=== PATIENT | male | born 1945 | race Caucasian/White ===

== ENCOUNTER → 2019-04-02 09:43 | Outpatient (CLI) | payer MEDICARE, OTHER, SELFPAY ==
--- NOTE | 2019-04-02 | DI.US.S_ITS ---
PROCEDURE: US ABD AORTA ANEURYSM SCREEN INDICATIONS: PERSONAL HISTORY OF NICOTINE DEPENDENCE TECHNIQUE: Real time scanning was performed of the aorta and iliac arteries, with image documentation. COMPARISON: [facility], CR, XR ABDOMEN 1 VIEW, 12/25/2018, 11:45. [facility] Ultrasound, US, US RENAL COMPLETE, 11/13/2017, 10:19. FINDINGS: Aorta: Proximal aortic diameter measures 2.8 cm. Mid-aorta measures 2.4 cm. Distal aortic diameter is 2.5 cm. Iliac arteries: Right common iliac artery measures 1.5 cm. Left common iliac artery measures 1.1 cm. IMPRESSION: Ectasia of the aorta. 5 year followup ultrasound recommended. Dictated by: Dave Amos [facility] Interpreted: Alberta Mccall MD on 04/02/2019 at 11:05 Approved by: Alberta Mccall M.D. on 04/02/2019 at 14:08
== END ==
PROVIDERS: Visit Provider Student in an Organized Health Care Education/Training Program
DX: Z13.6 Encounter for screening for cardiovascular disorders (principal); I77.819 Aortic ectasia, unspecified site; Z87.891 Personal history of nicotine dependence
CPT/HCPCS: 76706

== ENCOUNTER 2020-02-05 11:21 | Emergency (ER) | payer MEDICARE, OTHER, SELFPAY ==
[2020-02-05 11:26] VITALS: BP 183/86; PULSE 75; RESP 18; TEMP 36.1; O2SAT 99; BMI 29.1
[2020-02-05 11:53] LABS: Add Manual Diff / Slide Review NO; Basophils Absolute Auto 0 /uL (0-100); Basophils Percent Auto 0.3 % (0-2); Eosinophils Absolute Auto 0 /uL (0-450); Eosinophils Percent Auto 0.3 % (2-4); Lymphocytes Absolute Auto 1500 /uL (1100-4500); Lymphocytes Percent Auto 11.3 % (25-40); Mean Corpuscular HGB Conc 32.5 % (30-36); Monocytes Absolute Auto 900 /uL (0-900); Monocytes Percent Auto 6.7 % (3-14); Neutrophils Absolute Auto 10700 /uL (1500-7000); Neutrophils Percent Auto 81.4 % (50-75); Platelet Count 230 X10^3/uL (150-400); Red Blood Cell Count 5.54 X10^6/uL (4.5-5.9); Red Cell Distribution Width 14.9 % (11.6-14.8); White Blood Cell Count 13.1 X10^3/uL (4.5-11.0)
[2020-02-05 11:58] LABS: Prothrombin Time 11.8 SECONDS (10.1-12.7)
[2020-02-05 12:01] LABS: Alanine Aminotransferase 19 IU/L (<50); Albumin 4.3 g/dL (3.5-5.0); Albumin Globulin Ratio 1.2 (1.0-2.8); Alkaline Phosphatase 100 U/L (38-126); Aspartate Aminotransferase 24 IU/L (17-59); BUN Creatinine Ratio 13.8 (6-22); Bilirubin Total 0.7 mg/dL (0.2-1.3); Blood Urea Nitrogen 17 mg/dL (9-20); Calcium 9.8 mg/dL (8.4-10.2); Carbon Dioxide 28 mmol/L (22-32); Chloride 106 mmol/L (98-107); Estimated Glomerular Filt Rate 57.7 mL/min (>60); Globulin 3.6 g/dL (1.7-4.1); Glucose 162 mg/dL (80-110); HEMOLYSIS < 15 (0-50); Lipase 57 U/L (23-300); PTT Partial Thromboplastin Tim 29 SECONDS (26.4-36.2); Potassium 4.3 mmol/L (3.4-5.1); Sodium 143 mmol/L (137-145); Total Protein 7.9 g/dL (6.3-8.2)
[2020-02-05 12:47] VITALS: PULSE 75; O2SAT 97
--- NOTE | 2020-02-05 12:47 | ED.ABDPAIN ---
HPI - Abdominal Pain General Chief Complaint: Abdominal Pain Stated Complaint: Lower Left Abdominal pain Time Seen by Provider: 02/05/20 12:34 History of Present Illness HPI narrative: 74-year-old gentleman with a history of hypertension for which he rarely takes his prescribed medication presents with acute onset abdominal pain. Mid epigastrium possibly left lower quadrant that is been present since 6:00 a.m. this morning and is getting increasingly worse. He is having difficulty finding a comfortable position to be in.. He had his appendix taken out approximately 15 years ago. He does not describe significant fevers. He had a normal bowel movement last night and a small bowel movement that did not influence his pain at all this morning. He describes no chest pain, vomiting, nausea, diarrhea, dyspnea, dysuria, flank pain. Notes some chills associated with waves of pain this morning. Related Data Previous Rx's Medication Instructions Recorded oxycodone-acetaminophen 1 tab PO Q6H PRN #14 tab 02/05/20 tamsulosin 0.4 mg PO DAILY #30 cap 02/05/20 Allergies Allergy/AdvReac Type Severity Reaction Status Date / Time No Known Drug Allergies Allergy Verified 02/05/20 11:26 Review of Systems Review of Systems Narrative: Remainder of review of systems including constitutional, ENT, cardiovascular, respiratory, GI, , musculoskeletal, skin, neurologic and psychiatric systems reviewed and are unremarkable except as noted in HPI. Patient History Medical History (Updated 02/05/20 @ 15:56 by Joy Reyes MD) Hypertension (Acute) Social History Smoking Status: Former smoker Smoking Status: Former smoker alcohol intake frequency: 0-2 drinks per day Alcohol type: hard liquor Substance Use Type: does not use Exam Narrative Exam Narrative: General: Healthy appearing, in no acute distress. Able to give a complete and coherent history. Well-nourished well-developed HEENT: Moist mucous membranes, normal sclera with reactive pupils, Neck: No JVD, supple Respiratory: Lungs are clear to auscultation, no wheezing no rales no rhonchi. Full and symmetrical air movement Cardiac: Regular rate and rhythm no murmurs no bruits Abdomen: Soft mildly tender periumbilical into the left lower quadrant with hypo active bowel tones, no rebound or guarding. No flank pain Skin: Warm and dry, no rashes Neurologic: Grossly neurologically intact with no obvious asymmetries or abnormalities Extremities: No trauma, well perfused Psych: Cooperative, appropriate insight and affect Initial Vital Signs Initial Vital Signs: Vital Signs Temperature 97.0 F L 02/05/20 11:26 Pulse Rate 75 02/05/20 11:26 Respiratory Rate 18 02/05/20 11:26 Blood Pressure 183/86 H 02/05/20 11:26 Pulse Oximetry 99 02/05/20 11:26 Course Orders Ordered: ED Orders 02/05/20 11:31 EKG-12 Lead Stat 02/05/20 11:40 Complete Blood Count AUTO DIFF Stat Comprehensive Metabolic Panel Stat Lipase Stat Partial Thromboplastin Time Stat Prothrombin Time INR Stat 02/05/20 14:09 CT abdomen pelvis w con Stat 02/05/20 14:20 Urine Microscopic Stat Discontinued Medications Hydromorphone HCl (Dilaudid) 0.5 mg IV NOW ONE Stop: 02/05/20 12:58 Last Admin: 02/05/20 13:04 Dose: 0.5 mg Documented by: LUDWIN Sodium Chloride (Normal Saline 0.9%) 1,000 mls @ 1,000 mls/hr IV BOLUS ONE Stop: 02/05/20 13:56 Last Infusion: 02/05/20 13:58 Dose: 0 mls/hr Documented by: Admin: 02/05/20 13:04 Dose: 1,000 mls/hr Documented by: LUDWIN Oxycodone/Acetaminophen (Percocet 5/325) 1 tab PO NOW ONE Stop: 02/05/20 15:52 Tamsulosin HCl (Flomax) 0.4 mg PO NOW ONE Stop: 02/05/20 15:52 Vital Signs Vital signs: Vital Signs - 8 hr 02/05/20 11:26 02/05/20 12:47 02/05/20 12:48 Temperature 97.0 F L Pulse Rate 75 75 73 Respiratory Rate 18 Blood Pressure 183/86 H 189/92 H Pulse Oximetry 99 97 98 02/05/20 13:00 02/05/20 13:30 Temperature Pulse Rate 70 78 Respiratory Rate Blood Pressure 170/79 H 156/75 H Pulse Oximetry 97 95 MDM - Abdominal Pain Medical Records Attestation: I reviewed the patient's medical records. Lab Data Attestation: I reviewed the patient's lab results. Result diagrams: 02/05/20 11:40 09/16/20 11:40 Labs: Lab Results 02/05/20 02/05/20 02/05/20 Range/Units 11:40 11:40 11:40 WBC 13.1 H (4.5-11.0) X10^3/uL RBC 5.54 (4.5-5.9) X10^6/uL Hgb 15.0 (13.5-17.5) g/dL Hct 46.0 (41-53) % MCV 83.0 (80-100) fL MCH 27.0 (26-34) PG MCHC 32.5 (30-36) % RDW 14.9 H (11.6-14.8) % Plt Count 230 (150-400) X10^3/uL Neut % (Auto) 81.4 H (50-75) % Lymph % (Auto) 11.3 L (25-40) % Flag[place] % (Auto) 6.7 (3-14) % Eos % (Auto) 0.3 L (2-4) % Baso % (Auto) 0.3 (0-2) % Neut # (Auto) 62361 H (5255-5894) /uL Lymph # (Auto) 1500 (1672-6406) /uL Flagler # (Auto) 900 (0-900) /uL Eos # (Auto) 0 (0-450) /uL Baso # (Auto) 0 (0-100) /uL PT 11.8 (10.1-12.7) SECONDS INR 1.0 (0.9-1.3) APTT 29 (26.4-36.2) SECONDS Sodium 143 (137-145) mmol/L Potassium 4.3 (3.4-5.1) mmol/L Chloride 106 (98-107) mmol/L Carbon Dioxide 28 (22-32) mmol/L BUN 17 (9-20) mg/dL Creatinine 1.23 (0.66-1.25) mg/dL Estimated GFR 57.7 L (>60) mL/min BUN/Creatinine Ratio 13.8 (6-22) Glucose 162 H (80-110) mg/dL Calcium 9.8 (8.4-10.2) mg/dL Total Bilirubin 0.7 (0.2-1.3) mg/dL AST 24 (17-59) IU/L ALT 19 (<50) IU/L Alkaline Phosphatase 100 (38-126) U/L Total Protein 7.9 (6.3-8.2) g/dL Albumin 4.3 (3.5-5.0) g/dL Globulin 3.6 (1.7-4.1) g/dL Albumin/Globulin Ratio 1.2 (1.0-2.8) Lipase 57 (23-300) U/L Urine RBC (0-5/HPF) Urine WBC (0-5/HPF) Urine Bacteria (None) Ur Culture Indicated? 02/05/20 Range/Units 14:20 WBC (4.5-11.0) X10^3/uL RBC (4.5-5.9) X10^6/uL Hgb (13.5-17.5) g/dL Hct (41-53) % MCV (80-100) fL MCH (26-34) PG MCHC (30-36) % RDW (11.6-14.8) % Plt Count (150-400) X10^3/uL Neut % (Auto) (50-75) % Lymph % (Auto) (25-40) % Flagler % (Auto) (3-14) % Eos % (Auto) (2-4) % Baso % (Auto) (0-2) % Neut # (Auto) (8340-1992) /uL Lymph # (Auto) (6975-8806) /uL Flagler # (Auto) (0-900) /uL Eos # (Auto) (0-450) /uL Baso # (Auto) (0-100) /uL PT (10.1-12.7) SECONDS INR (0.9-1.3) APTT (26.4-36.2) SECONDS Sodium (137-145) mmol/L Potassium (3.4-5.1) mmol/L Chloride (98-107) mmol/L Carbon Dioxide (22-32) mmol/L BUN (9-20) mg/dL Creatinine (0.66-1.25) mg/dL Estimated GFR (>60) mL/min BUN/Creatinine Ratio (6-22) Glucose (80-110) mg/dL Calcium (8.4-10.2) mg/dL Total Bilirubin (0.2-1.3) mg/dL AST (17-59) IU/L ALT (<50) IU/L Alkaline Phosphatase (38-126) U/L Total Protein (6.3-8.2) g/dL Albumin (3.5-5.0) g/dL Globulin (1.7-4.1) g/dL Albumin/Globulin Ratio (1.0-2.8) Lipase (23-300) U/L Urine RBC 10-30/hpf H (0-5/HPF) Urine WBC None seen (0-5/HPF) Urine Bacteria None seen (None) Ur Culture Indicated? Cult not indicated Point of care testing: Urine Dip Bedside Urine Glucose Negative Bedside Urine Bilirubin - Negative Bedside Urine Ketone - Negative Urine Specific [place] 1.015 Bedside Urine Occult Blood +++ Bedside Urine pH 6.0 Bedside Urine Protein +/- 15 Bedside Urine Nitrite - Negative Bedside Urine Leukocytes - Negative Esterase Imaging Data CT scan - abdomen/pelvis: Radiologist's Impression: FINDINGS: Image quality: Excellent. ABDOMEN: Lung bases: Lung bases are clear. Heart size is normal. A small hiatal hernia is incidentally noted. Coronary artery calcifications are seen. Solid organs: Liver is normal in size and enhancement. Gallbladder demonstrates a gallstone within its lumen, as on series 2 image 34. Biliary system is non dilated. Pancreas enhances normally. Spleen is normal in size and enhancement. No adrenal nodules. There is an obstructing stone seen within the left proximal ureter, as on series 2, image 48 and on series 4, image 44, which measures up to 4 mm. There is associated moderate left-sided hydronephrosis and hydroureter. Bilateral senescent, living can be seen. Kidneys demonstrate normal size and enhancement. Simple appearing bilateral renal cysts are seen. Peritoneum and bowel: Bowel loops demonstrate normal wall thickness and caliber. No free fluid or air. Appendectomy clips are seen. Advanced colonic diverticulosis is seen. No lucrecia active diverticulitis can be seen. Nodes and vessels: No retroperitoneal or mesenteric adenopathy by size criteria. Aorta and inferior vena cava are normal in size. Atherosclerotic calcification is noted. Miscellaneous: A moderate periumbilical hernia is seen, containing fat. PELVIS: Genitourinary: Bladder wall thickness is normal. A TURP defect can be seen. Miscellaneous: No inguinal hernias or adenopathy. Bones: No suspicious bony lesions. No vertebral body compression fractures. IMPRESSION: There is an obstructing 4 mm stone seen within the left proximal ureter, with associated left-sided hydronephrosis. A gallstone is seen, without additional CT findings cholecystitis. Advanced sigmoid diverticulosis is seen, without lucrecia findings active diverticulitis. Incidental note is made of: Small hiatal hernia Atherosclerotic calcification, including coronary artery calcification Moderate fat containing periumbilical hernia Appendectomy TURP defect Dictated by: Jacky Kuo M.D. on 02/05/2020 at 13:29 ECG Data Attestation: I personally reviewed and interpreted this ECG as follows: Interpretation: Sinus rhythm at a rate is 72 Normal intervals, normal axis No acute ST T wave changes Discharge Plan Departure Patient Disposition: Home Clinical Impression: Ureterolithiasis Instructions: DI for Kidney Stones Activity Restrictions/Additional Instructions: Thank you for coming in today You have a 4 mm kidney stone on the left side. Your pain is controlled in the emergency department. I am going to send you home with Percocet for severe pain. This is a narcotic and will cause constipation. Any day that you take a pain pill please also take stool softener I am also going to have you take 0.4 mg of tamsulosin every day until you passed the stone. I will send you home with a urine strainer if you are able to catch it please take it into your appointment with the urologist to see if he wants to do any type of analysis. Please schedule follow-up appointment with Dr. Suarez, our urologist If you find that you are getting worse, have pain that can not be controlled with pills, uncontrolled vomiting or fevers or chills you need to return to the emergency department Prescriptions: New oxycodone-acetaminophen 5-325 mg tablet 1 tab PO Q6H PRN (Reason: pain) Qty: 14 RF: 0 tamsulosin 0.4 mg capsule 0.4 mg PO DAILY Qty: 30 RF: 0 Referrals: Luh Kumari PA-C [Primary Care Provider] - Susy Suarez MD [Physician] -
[2020-02-05 12:48] VITALS: BP 189/92; PULSE 73; O2SAT 98
[2020-02-05 13:00] VITALS: BP 170/79; PULSE 70; O2SAT 97
[2020-02-05] MEDS: SODIUM CHLORIDE 0.9% 1,000 ML 1000 ML IV (13:04)
[2020-02-05] MEDS: HYDROMORPHONE 0.5 MG INJ IV (13:04)
[2020-02-05 13:30] VITALS: BP 156/75; PULSE 78; O2SAT 95
--- NOTE | 2020-02-05 14:09 | DI.CT.S_ITS ---
PROCEDURE: CT ABDOMEN PELVIS W CON INDICATIONS: abd pain TECHNIQUE: After the administration of intravenous contrast, 5 mm thick sections acquired from the diaphragm to the symphysis. 5 mm coronal and sagittal reformats were acquired. For radiation dose reduction, the following was used: automated exposure control, adjustment of mA and/or kV according to patient size. COMPARISON: [facility], US, US ABD AORTA ANEURYSM SCREEN, 04/02/2019, 10:30. [facility], CR, XR ABDOMEN 1 VIEW, 12/25/2018, 11:45. [facility] Ultrasound, US, US RENAL COMPLETE, 11/13/2017, 10:19. [facility], CT, ABDOMEN/PELVIS WITH CONTRAST, 11/18/2014, 13:11. FINDINGS: Image quality: Excellent. ABDOMEN: Lung bases: Lung bases are clear. Heart size is normal. A small hiatal hernia is incidentally noted. Coronary artery calcifications are seen. Solid organs: Liver is normal in size and enhancement. Gallbladder demonstrates a gallstone within its lumen, as on series 2 image 34. Biliary system is non dilated. Pancreas enhances normally. Spleen is normal in size and enhancement. No adrenal nodules. There is an obstructing stone seen within the left proximal ureter, as on series 2, image 48 and on series 4, image 44, which measures up to 4 mm. There is associated moderate left-sided hydronephrosis and hydroureter. Bilateral senescent, living can be seen. Kidneys demonstrate normal size and enhancement. Simple appearing bilateral renal cysts are seen. Peritoneum and bowel: Bowel loops demonstrate normal wall thickness and caliber. No free fluid or air. Appendectomy clips are seen. Advanced colonic diverticulosis is seen. No lucrecia active diverticulitis can be seen. Nodes and vessels: No retroperitoneal or mesenteric adenopathy by size criteria. Aorta and inferior vena cava are normal in size. Atherosclerotic calcification is noted. Miscellaneous: A moderate periumbilical hernia is seen, containing fat. PELVIS: Genitourinary: Bladder wall thickness is normal. A TURP defect can be seen. Miscellaneous: No inguinal hernias or adenopathy. Bones: No suspicious bony lesions. No vertebral body compression fractures. IMPRESSION: There is an obstructing 4 mm stone seen within the left proximal ureter, with associated left-sided hydronephrosis. A gallstone is seen, without additional CT findings cholecystitis. Advanced sigmoid diverticulosis is seen, without lucrecia findings active diverticulitis. Incidental note is made of: Small hiatal hernia Atherosclerotic calcification, including coronary artery calcification Moderate fat containing periumbilical hernia Appendectomy TURP defect Dictated by: Jacky Kuo M.D. on 02/05/2020 at 13:29 Approved by: Jacky Kuo M.D. on 02/05/2020 at 13:35
[2020-02-05 14:29] LABS: Bacteria Urine None Seen; WBC Urine None Seen (0-5/HPF)
[2020-02-05 14:37] LABS: Culture Indicated Urine Cult Not Indicated; RBC Urine 10-30/HPF (0-5/HPF)
[2020-02-05] MEDS: TAMSULOSIN 0.4 MG CAPSULE PO (16:02)
[2020-02-05] MEDS: OXYCODONE/ACETAMINOPHEN 5/325 TABLET 1 TAB PO (16:03)
[2020-02-05 16:05] VITALS: BP 170/90; PULSE 72; RESP 14; O2SAT 100
== END 2020-02-05 16:12 | disposition home or self-care (01) ==
PROVIDERS: Emergency Provider Emergency Medicine; PCP Student in an Organized Health Care Education/Training Program; Referring Provider Emergency Medicine
DX: N20.2 Calculus of kidney with calculus of ureter (principal); I10 Essential (primary) hypertension
CPT/HCPCS: 36415; 74177; 80053; 81003; 81015; 83690; 85025; 85610; 85730; 93005; 93010; 96361; 96374; 99284; J1170; Q9967

== ENCOUNTER → 2020-04-07 15:20 | Outpatient (CLI) | payer MEDICARE, OTHER, SELFPAY ==
--- NOTE | 2020-04-07 15:26 | DI.RAD.S_ITS ---
PROCEDURE: XR KUB INDICATIONS: kidney stone TECHNIQUE: One view of the abdomen acquired. COMPARISON: [facility], CT, CT ABDOMEN PELVIS W CON, 02/05/2020, 13:58. FINDINGS: Surgical changes and devices: None. Bowel: Bowel gas pattern is normal. Soft tissues: No suspicious abdominal calcifications. Visualized solid organ contours appear normal in size. Bones: Nonspecific 13 mm ill-defined rounded opacity overlying the inferior left sacroiliac joint. IMPRESSION: 1. No visualized calcifications overlying the kidneys or expected course of the ureters. 2. Ill-defined rounded opacity overlying the inferior aspect of the left sacroiliac joint measuring approximately 13 mm. This could represent overlapping shadows. It is noted that nothing is visualized within this region on the 02/05/2028 exam. Attention to this region on follow-up exams is recommended. Dictated by: Alberta Mccall M.D. on 04/07/2020 at 15:49 Approved by: Alberta Mccall M.D. on 04/07/2020 at 15:54
== END ==
PROVIDERS: PCP Student in an Organized Health Care Education/Training Program; Referring Provider Specialist; Visit Provider Specialist
DX: N20.0 Calculus of kidney (principal); C61 Malignant neoplasm of prostate; K42.9 Umbilical hernia without obstruction or gangrene; Z87.442 Personal history of urinary calculi
CPT/HCPCS: 74018; 81002; 99215

== ENCOUNTER → 2020-10-22 10:52 | Outpatient (CLI) | payer MEDICARE, OTHER, SELFPAY ==
--- NOTE | 2020-10-22 10:53 | DI.US.S_ITS ---
PROCEDURE: US RENAL COMPLETE INDICATIONS: History of nephrolithiasis TECHNIQUE: Real-time scanning was performed of the kidneys and bladder, with image documentation. COMPARISON: CT, ABDOMEN/PELVIS WITH CONTRAST, 11/18/2014, 13:11. Outside Facility, RG, CT PET CT PROSTATE AXUMIN, 04/23/2020, 15:11. [facility], CT, CT ABDOMEN PELVIS W CON, 02/05/2020, 13:58. [facility], US, RENAL COMPLETE, 01/28/2016, 11:45. FINDINGS: Kidneys: Kidneys are normal in size. Right kidney measures 13.4 cm long; left kidney measures 12.3 cm long. Right renal cortical thickness is 1.5 cm; left renal cortical thickness is 1.3 cm. No hydronephrosis. No kidney stones identified. Right kidney superior pole cystic lesion with internal soft tissue measuring 4.5 x 4.3 x 4.1 cm. There is peripheral vascularity. Left kidney lower pole simple appearing cyst measuring at 2.3 x 2.1 x 1.6 cm. Bladder: Bladder volume is 38 mL. Patient could not void. Bilateral ureteral jets are not seen. Miscellaneous: No free pelvic fluid seen. History of radical prostatectomy. IMPRESSION: 1. No obvious kidney stones. No hydronephrosis. 2. Right kidney superior pole complicated cyst measuring 4.5 cm. This previously measured 3.9 cm on 02/05/2020. -This could be further characterized with MRI or CT. -Follow-up ultrasound in 6-12 months could also be performed to demonstrate stability in size. Dictated by: Keyon Collier M.D. on 10/22/2020 at 13:36 Approved by: Keyon Collier M.D. on 10/22/2020 at 13:46
== END ==
PROVIDERS: PCP Student in an Organized Health Care Education/Training Program; Referring Provider Specialist; Visit Provider Specialist
DX: Z87.442 Personal history of urinary calculi (principal)
CPT/HCPCS: 76770

== ENCOUNTER → 2021-04-05 08:40 | Outpatient (CLI) | payer MEDICARE, OTHER, SELFPAY ==
--- NOTE | 2021-04-05 08:41 | DI.US.S_ITS ---
PROCEDURE: US RENAL COMPLETE INDICATIONS: HISTORY KIDNEY STONES TECHNIQUE: Real-time scanning was performed of the kidneys and bladder, with image documentation. COMPARISON: Outside Facility, RG, CT PET CT PROSTATE AXUMIN, 04/23/2020, 15:11. [facility] Ultrasound, US, US RENAL COMPLETE, 11/13/2017, 10:19. [facility], CT, CT ABDOMEN PELVIS W CON, 02/05/2020, 13:58. [facility], CR, XR KUB, 04/07/2020, 15:37. [facility], US, US RENAL COMPLETE, 10/22/2020, 10:13. FINDINGS: Kidneys: Kidneys are normal in size. Right kidney measures 12.8 cm long; left kidney measures 12.2 cm long. Right renal cortical thickness is 1.7 cm; left renal cortical thickness is 1.1 cm. Renal cortical echotexture is normal. No kidney stones are seen on either side. No hydronephrosis is seen on either side. Within the inferior pole of the left kidney, there is a solid-appearing nonvascular mass that measures 2.4 x 1.7 x 2.1 cm. Adjacent to this solid-appearing mass, there is a stable simple appearing cyst that measures up to 2.5 cm. On the right side, there is a minimally complex nonvascular cyst seen superiorly that measures 5.2 x 4.4 x 5.1 cm, which previously measured 4.3 x 4.1 x 4.5 cm. Bladder: Not well evaluated, as it is poorly distended. Neither ureteral jet can be seen. Miscellaneous: No free pelvic fluid. IMPRESSION: No kidney stones are seen. There is a solid-appearing mass seen at the inferior pole of the left kidney that measures up to 2.4 cm. On the prior CT dated 02/05/2020, this mass cannot be seen. A dedicated renal mass protocol CT (without and with contrast) is now recommended for further evaluation. Simple appearing bilateral renal cysts are seen. The right renal cyst is mildly increased in size compared to the prior. Dictated by: Jacky Kuo M.D. on 04/05/2021 at 10:38 Approved by: Jacky Kuo M.D. on 04/05/2021 at 10:43
== END ==
PROVIDERS: PCP Student in an Organized Health Care Education/Training Program; Referring Provider Specialist; Visit Provider Specialist
DX: Z87.442 Personal history of urinary calculi (principal); Z09 Encounter for follow-up examination after completed treatment for conditions other than malignant neoplasm; N28.1 Cyst of kidney, acquired; N28.89 Other specified disorders of kidney and ureter
CPT/HCPCS: 76770

== ENCOUNTER → 2021-04-16 09:19 | Outpatient (CLI) | payer MEDICARE, OTHER, SELFPAY ==
[2021-04-16 10:19] LABS: BUN Creatinine Ratio 15.8 (6-22); Blood Urea Nitrogen 18 mg/dL (9-20); Calcium 9.5 mg/dL (8.4-10.2); Carbon Dioxide 29 mmol/L (22-32); Chloride 103 mmol/L (98-107); Estimated Glomerular Filt Rate > 60.0 mL/min (>60); Glucose 113 mg/dL (80-110); HEMOLYSIS < 15 (0-50); Potassium 4.5 mmol/L (3.4-5.1); Sodium 140 mmol/L (137-145)
[2021-04-16 10:50] LABS: Prostate Specific Antigen 0.086 ng/mL (0.10-4.00)
== END ==
PROVIDERS: PCP Student in an Organized Health Care Education/Training Program; Referring Provider Specialist; Visit Provider Specialist
DX: Z85.46 Personal history of malignant neoplasm of prostate (principal); Z01.812 Encounter for preprocedural laboratory examination
CPT/HCPCS: 36415; 80048; 84153

== ENCOUNTER → 2021-04-23 11:53 | Outpatient (CLI) | payer MEDICARE, OTHER, SELFPAY ==
--- NOTE | 2021-04-23 12:21 | DI.CT.S_ITS ---
PROCEDURE: CT ABDOMEN PELVIS WO/W CON INDICATIONS: bilateral renal cyst. Right renal cyst increased in size TECHNIQUE: Optional 5 mm thick noncontrast images acquired from the diaphragm to the symphysis pubis. After the administration of intravenous contrast, 5 mm thick images acquired from the diaphragm to the symphysis pubis after a 10-minute delay. 2 mm thick coronal and sagittal reformats were then performed of the kidneys and ureters. For radiation dose reduction, the following was used: automated exposure control, adjustment of mA and/or kV according to patient size. COMPARISON: [facility], US, US RENAL COMPLETE, 04/05/2021, 9:18. [facility], US, US RENAL COMPLETE, 10/22/2020, 10:13. [facility], CT, CT ABDOMEN PELVIS W CON, 02/05/2020, 13:58. FINDINGS: Image quality: Excellent. Lung bases: Lung bases are clear. Heart size is normal. Urinary system: Both kidneys are normal in size. A 0.4 cm nonobstructing calculus is seen at the inferior pole of the left kidney. A punctate 0.2 cm calculus is seen in the inferior pole of the right kidney. No perinephric fat stranding. There is symmetric bilateral renal enhancement. A 2.5 x 1.8 x 1.9 cm hypoenhancing lesion is seen in the inferior pole of the left kidney (58/8 and 35/5) that corresponds with the solid-appearing mass seen on ultrasound from 04/05/2021. This mass is not seen on the prior CT from 02/05/2020. A 2.4 x 1.8 cm nonenhancing low-density cyst is seen more posteriorly within the inferior pole of left kidney with a single thin calcification posteriorly, Bosniak 2. A 0.8 cm hypoattenuating lesion is seen in the lateral interpolar region of the left kidney that is too small to characterize, but likely represents a benign cyst. A 4.4 x 4.4 cm cyst with a mildly thick wall (23/5) is seen at the superior pole of the right kidney, previously measuring 3.6 x 3.8 cm. A 1.6 cm enhancing mural nodular component is seen at the superomedial aspect of the cyst (20/5) that was not definitely present on the prior CT from 02/05/2020 and suggests the lesion may be classified as Bosniak 3. A 2.2 x 1.9 cm lesion is seen more anteriorly within the superior pole of left kidney that demonstrates mild hyperattenuation on precontrast images without significant contrast enhancement. A few mural calcifications are noted, Bosniak 2. This lesion does not appear significantly changed in size. A 1.6 x 1.5 cm mildly exophytic hypoattenuating lesion is seen in the interpolar region of the right kidney, which previously measured 1.3 x 1.1 cm. This lesion demonstrates mild postcontrast enhancement. Renal calyces appear normal in morphology when filled with contrast. Opacified portions of both ureters demonstrate normal caliber. Bladder wall thickness is normal. No calcified bladder stones. Other solid organs: Liver is normal in size and enhancement. Gallbladder contains dependent tiny calcified gallstones. No signs of cholecystitis are seen. Biliary system is non dilated. Pancreas enhances normally. Spleen is normal in size and enhancement. No adrenal nodules. Peritoneum and bowel: Multiple diverticula are seen in the colon without signs of acute diverticulitis. There is a small hiatal hernia. Right lower quadrant clips are present. No ascites or pneumoperitoneum. Nodes and vessels: There is a nonspecific missed D appearance of the small bowel mesentery with a few nonenlarged lymph nodes. No significant retroperitoneal lymphadenopathy is seen. No invasion of the renal veins or IVC is seen. Aorta and inferior vena cava are normal in size. Moderate aortic atherosclerotic calcifications. Abdominal wall: No ventral hernias. Pelvis: No pathologic free pelvic fluid. No inguinal hernias or adenopathy. Bones: No suspicious bony lesions. No vertebral body compression fractures. IMPRESSION: 1. Solid enhancing 2.5 cm mass at the inferior pole of the left kidney is new when compared to the CT from 02/05/2020, and is suspicious for a solid renal neoplasm such as renal cell carcinoma. 2. 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 3. Hypoattenuating 1.6 cm mass in the interpolar region of the right kidney demonstrates possible mild central postcontrast enhancement suggesting an additional solid mass. This lesion measured 1.3 cm on the prior CT and is not visualized on the recent prior ultrasounds. 4. Additional benign appearing renal cysts are seen bilaterally. 5. Small nonobstructing calculi in each kidney. Dictated by: Saud Perez M.D. on 04/23/2021 at 15:55 Approved by: Saud Perez M.D. on 04/23/2021 at 16:35
== END ==
PROVIDERS: PCP Student in an Organized Health Care Education/Training Program; Referring Provider Specialist; Visit Provider Specialist
DX: N28.89 Other specified disorders of kidney and ureter (principal); N28.1 Cyst of kidney, acquired; N20.0 Calculus of kidney
CPT/HCPCS: 74178

== ENCOUNTER 2025-03-20 19:08 | Emergency (ER) | payer MEDICARE, SELFPAY ==
[2025-03-20] VITALS (15 sets, daily range): BP systolic 118–162; BP diastolic 62–84; PULSE 65–74; RESP 11–22; TEMP 36.7; O2SAT 95–97; BMI 27.1
--- NOTE | 2025-03-20 19:45 | ED_ITS ---
HPI - Dizziness General Chief Complaint: Dizziness Stated Complaint: weakness Time Seen by Provider: 03/20/25 19:29 Source: patient Mode of arrival: Wheelchair History of Present Illness HPI Narrative: 79-year-old male with a history of prostate cancer status post radiation who is undergoing hormone eligard therapy with Dr. Ferrer here every 3 months. Patient had a 1 day history of dizziness especially trying to stand from a sitting position today. Patient admits to going on a longer walk today and does not hydrate very well. Related Data Home Medications ?Medication ?Instructions ?Recorded ?Confirmed tiotropium bromide 18 mcg capsule 1 cap inhalation DEIDRE LY 01/31/24 02/17/25 with inhalation device (Spiriva with HandiHaler) lisinopril 10 1 tab PO .COMPLEX 07/30/24 0 02/17/25 mg-hydrochlorothiazide 12.5 mg tablet Allergies Allergy/AdvReac Type Severity Reaction Status Date / Time No Known Drug Allergies Allergy Verified 02/17/25 13:19 Review of Systems Review of Systems ROS Unobtainable: All systems reviewed & are unremarkable except as noted in HPI and below Patient History Medical History Biochemically recurrent malignant neoplasm of prostate Bilateral nephrolithiasis 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 Bilateral renal masses History of malignant neoplasm of prostate Umbilical hernia without obstruction and without gangrene History of nephrolithiasis Kidney stones COPD (chronic obstructive pulmonary disease) Prostate cancer Hypertension Surgical History H/O vasectomy H/O prostatectomy H/O prostate biopsy H/O circumcision History of appendectomy Family History Brother Kidney stones Social History marital status: number of children: 1 Smoking Status: Former smoker Tobacco: How many years used: 40 Smokeless tobacco user: other quit status: quit date established Smoking Status: Former smoker alcohol intake frequency: 0-2 drinks per day Alcohol type: hard liquor Exam Narrative Exam Narrative: General: Patient appears to be in no acute distress, acting appropriately Head: normocephalic, atraumatic, HEENT: Pupils equal round reactive, eyes tracking well, neck supple, no JVD Heart: regular rate and rhythm, no murmurs, rubs, or gallops heard Lungs: clear to auscultation, no adventitious sounds Abdomen: soft , nontender, nondistended, positive bowel sounds Neurological: no focal neurological signs, moving all extremities well, alert and oriented x3, Psych: good judgment ,good insight, mood is normal. Initial Vital Signs Initial Vital Signs: Vital Signs Temperature 98.1 F 03/20/25 19:13 Pulse Rate 70 03/20/25 19:13 Respiratory Rate 18 03/20/25 19:13 Blood Pressure 140/66 03/20/25 19:13 Pulse Oximetry 97 03/20/25 19:13 Oxygen Delivery Method Room Air 03/20/25 19:13 Course Orders Ordered: Discontinued Medications Sodium Chloride (Normal Saline 0.9%) 500 mls @ 1,000 mls/hr IV BOLUS ONE Stop: 03/20/25 19:50 Last Infusion: 03/20/25 20:49 Dose: Infused Documented By: Admin: 03/20/25 20:12 Dose: 1,000 mls/hr Documented By: GIANCARLO Reevaluation(s) Reevaluation #1: Upon re-evaluation, patient has been asymptomatic and feels better after fluid challenge. Vital Signs Vital signs: Vital Signs - 8 hr 03/20/25 19:13 03/20/25 19:41 03/20/25 19:47 Temperature 98.1 F Pulse Rate 70 74 66 Pulse Rate [Orthostatic Lying] Pulse Rate [Orthostatic Sitting] Pulse Rate [Orthostatic Standing] Respiratory Rate 18 16 Blood Pressure 140/66 Blood Pressure [Orthostatic Lying] Blood Pressure [Orthostatic Sitting] Blood Pressure [Orthostatic Standing] Pulse Oximetry 97 97 Oxygen Delivery Method Room Air 03/20/25 19:47 03/20/25 20:00 03/20/25 20:01 Temperature Pulse Rate 66 66 Pulse Rate [Orthostatic Lying] Pulse Rate [Orthostatic Sitting] Pulse Rate [Orthostatic Standing] Respiratory Rate 12 12 Blood Pressure 148/67 H Blood Pressure [Orthostatic Lying] Blood Pressure [Orthostatic Sitting] Blood Pressure [Orthostatic Standing] Pulse Oximetry 97 96 Oxygen Delivery Method 03/20/25 20:01 03/20/25 20:30 03/20/25 20:31 Temperature Pulse Rate 68 Pulse Rate [Orthostatic Lying] Pulse Rate [Orthostatic Sitting] Pulse Rate [Orthostatic Standing] Respiratory Rate 20 Blood Pressure 132/62 144/75 H Blood Pressure [Orthostatic Lying] Blood Pressure [Orthostatic Sitting] Blood Pressure [Orthostatic Standing] Pulse Oximetry 96 Oxygen Delivery Method 03/20/25 20:31 03/20/25 21:02 Temperature Pulse Rate 66 Pulse Rate [Orthostatic Lying] 66 Pulse Rate [Orthostatic Sitting] 69 Pulse Rate [Orthostatic Standing] 73 Respiratory Rate 13 Blood Pressure Blood Pressure [Orthostatic Lying] 126/64 Blood Pressure [Orthostatic Sitting] 129/71 Blood Pressure [Orthostatic Standing] 162/73 H Pulse Oximetry 96 Oxygen Delivery Method MDM - Dizziness Lab Data 03/20/25 19:40 03/20/25 19:40 Labs: Lab Results 03/20/25 Range/Units 19:40 WBC 7.5 (4.5-11.0) X10^3/uL RBC 4.81 (4.5-5.9) X10^6/uL Hgb 13.4 L (13.5-17.5) g/dL Hct 39.3 L (41-53) % MCV 81.7 (80-100) fL MCH 27.8 (26-34) PG MCHC 34.1 (30-36) % RDW 15.0 H (11.6-14.8) % Plt Count 234 (150-400) X10^3/uL Neut % (Auto) 60.8 (50-75) % Lymph % (Auto) 24.8 L (25-40) % [place] % (Auto) 8.9 (3-14) % Eos % (Auto) 4.9 H (2-4) % Baso % (Auto) 0.6 (0-2) % Neut # (Auto) 4500 (3243-7123) /uL Lymph # (Auto) 1800 (3613-7017) /uL [place] # (Auto) 700 (0-900) /uL Eos # (Auto) 400 (0-450) /uL Baso # (Auto) 0 (0-100) /uL Sodium 139 (137-145) mmol/L Potassium 3.8 (3.4-5.1) mmol/L Chloride 102 (98-107) mmol/L Carbon Dioxide 27 (22-32) mmol/L BUN 22 H (9-20) mg/dL Creatinine 1.00 (0.66-1.25) mg/dL Estimated GFR > 60 (>60) mL/min BUN/Creatinine Ratio 22.0 (6-22) Glucose 100 H (70-99) mg/dL Calcium 10.0 (8.4-10.2) mg/dL Total Bilirubin 0.5 (0.2-1.3) mg/dL AST 26 (17-59) IU/L ALT 18 (<50) IU/L Alkaline Phosphatase 78 (38-126) U/L Total Protein 8.4 H (6.3-8.2) g/dL Albumin 4.7 (3.5-5.0) g/dL Globulin 3.7 (1.7-4.1) g/dL Albumin/Globulin Ratio 1.3 (1.0-2.8) Urine Dip Bedside Urine Glucose Negative Bedside Urine Bilirubin - Negative Bedside Urine Ketone - Negative Urine Specific [place] 1.015 Bedside Urine Occult Blood - Negative Bedside Urine pH 6.0 Bedside Urine Protein - Negative Bedside Urine Urobilinogen - Negative Bedside Urine Nitrite - Negative Bedside Urine Leukocytes - Negative Esterase MDM Narrative Medical decision making narrative: 79-year-old male with a history of prostate cancer undergoing hormone therapy currently presents with more dizziness today. Patient doing much better after some fluids. Given some hydration instructions. Follow up if symptoms worsen. Discharge Plan Departure Patient Disposition: Home Clinical Impression: Orthostatic hypotension Instructions: Orthostatic Hypotension Activity Restrictions/Additional Instructions: Advised to hydrate at least 40-50 oz daily eventually up to 100 oz if possible of water. Follow up if symptoms worsen. No other concerning signs on labs and symptoms. Prescriptions: No Action lisinopril-hydrochlorothiazide 10-12.5 mg tablet 1 tab PO .COMPLEX Rx Instructions: 1 tab orally every other day; tiotropium bromide [Spiriva with HandiHaler] 18 mcg capsule, w/inhalation device 1 cap inhalation DAILY Rx Instructions: puncture 1 cap using device; one dose = 2 inhalations Referrals: Luh Kumari PA-C [Primary Care Provider, Medical] Stand Alone Forms: Patient Portal/API
[2025-03-20 19:53] LABS: Add Manual Diff / Slide Review NO; Hematocrit 39.3 % (41-53); Hemoglobin 13.4 g/dL (13.5-17.5); Lymphocytes Absolute Auto 1800 /uL (1100-4500); Mean Corpuscular HGB Conc 34.1 % (30-36); Mean Corpuscular Hemoglobin 27.8 PG (26-34); Mean Corpuscular Volume 81.7 fL (80-100); Platelet Count 234 X10^3/uL (150-400)
[2025-03-20 20:08] LABS: Alanine Aminotransferase 18 IU/L (<50); Albumin 4.7 g/dL (3.5-5.0); Albumin Globulin Ratio 1.3 (1.0-2.8); Alkaline Phosphatase 78 U/L (38-126); Blood Urea Nitrogen 22 mg/dL (9-20); Calcium 10.0 mg/dL (8.4-10.2); Carbon Dioxide 27 mmol/L (22-32); Chloride 102 mmol/L (98-107); Estimated Glomerular Filt Rate > 60 mL/min (>60); Globulin 3.7 g/dL (1.7-4.1); Glucose 100 mg/dL (70-99); HEMOLYSIS < 15 (0-50); Potassium 3.8 mmol/L (3.4-5.1); Sodium 139 mmol/L (137-145); Total Protein 8.4 g/dL (6.3-8.2)
[2025-03-20] MEDS: SODIUM CHLORIDE 0.9% 500 ML 1000 ML IV (20:12)
--- NOTE | 2025-03-20 21:04 | PC.NURSE ---
Pt walked 50 ft outside the room and states minimal lightheadedness, no SOB and no dizziness. Findings shared with the nurse.
== END 2025-03-20 22:15 | disposition home or self-care (01) ==
PROVIDERS: Emergency Provider Family Medicine; PCP Student in an Organized Health Care Education/Training Program
DX: I95.1 Orthostatic hypotension (principal); Z85.46 Personal history of malignant neoplasm of prostate
CPT/HCPCS: 36415; 80053; 81003; 85025; 96360; 99284; J7040